=== PATIENT | male | born 1955 | race Two or more races ===

== ENCOUNTER 2020-12-22 11:16 | Emergency (ER) | payer OTHER ==
[~2020-12-22] VITALS: Ht 167.6 cm; Wt 111.1 kg
[2020-12-22 11:21] VITALS: BP 143/84
== END 2020-12-22 12:40 | disposition home or self-care (01) ==
LOC: ER 11:19
DX: S00.412A Abrasion of left ear, initial encounter (principal); K21.9 Gastro-esophageal reflux disease without esophagitis; F43.10 Post-traumatic stress disorder, unspecified; F17.210 Nicotine dependence, cigarettes, uncomplicated; Z88.0 Allergy status to penicillin; Z96.22 Myringotomy tube(s) status; X58.XXXA Exposure to other specified factors, initial encounter; Y93.89 Activity, other specified; Y92.89 Other specified places as the place of occurrence of the external cause; Y99.8 Other external cause status

== ENCOUNTER 2022-05-03 09:20 | Inpatient (IN) | payer OTHER ==
[~2022-05-03] VITALS: Ht 167.6 cm; Wt 87.9 kg
[2022-05-03] MEDS ORDERED: ENOXAPARIN SOD 100 MG/1 ML SYRINGE SC ONE (11:30)
[2022-05-03] MEDS ORDERED: HYDROcodone-ACET 10/325MG TAB PO ONE (11:30)
[2022-05-03 12:09] LABS: Basophils # (auto) 0 10 ^3/uL (0-0.2); Basophils % (auto) 0.3 % (0.0-2.0); Eosinophils # (auto) 0 10 ^3/uL (0-0.8); Eosinophils % (auto) 0.1 % (0.0-7.0); Hematocrit 38.6 % (41.0-53.0); Hemoglobin 12.9 g/dL (13.5-17.5); Lymphocytes # (auto) 1.1 10 ^3/uL (0.4-5.4); Lymphocytes % (auto) 7.6 % (10.0-50.0); Mean Corpuscular Hemoglobin 28.7 pg (28.0-32.0); Mean Corpuscular Hgb Conc. 33.5 g/dL (32.0-36.0); Mean Corpuscular Volume 85.6 fL (80.0-100.0); Monocytes # (auto) 1.4 10 ^3/uL (0-1.3); Monocytes % (auto) 10.2 % (0.0-12.0); Neutrophils # (auto) 11.5 10 ^3/uL (1.6-8.6); Neutrophils % (auto) 81.8 % (37.0-80.0); Red Blood Cells 4.51 10^6/uL (4.5-5.90); Red Cell Distribution Width 14.9 % (11.8-14.3)
[2022-05-03 12:22] LABS: Albumin 2.5 g/dL (3.4-5.0); Calcium 8.8 mg/dL (8.5-10.1); Potassium 3.5 mmol/L (3.5-5.1)
[2022-05-03 12:25] LABS: Bilirubin, Total 1.6 mg/dL (0.2-1.0); Total Protein 7.3 g/dL (6.4-8.2)
[2022-05-03 12:27] LABS: INR 1.61 (0.9-1.15); Partial Thromboplastin Time 32.1 sec (24.6-33.4)
[2022-05-03] MEDS ORDERED: IOHEXOL 350 MG/ML 100ML IJ ONE (14:15)
[2022-05-03] MEDS ORDERED: HEPARIN SODIUM (PORCINE) 5000 UNITS/ML 1ML VIAL IV ONE (17:00)
[2022-05-03] MEDS ORDERED: DOCUSATE SOD 100 MG CAP PO PRN (17:00)
[2022-05-03] MEDS ORDERED: HEPARIN DRIP/D5W 100UNITS/ML 250 ML IV SCH (17:00)
[2022-05-03] MEDS ORDERED: ONDANSETRON HCL 4 MG/2 ML VIAL IV PRN (17:00)
[2022-05-03] MEDS ORDERED: ACETAMINOPHEN 325 MG TAB PO PRN (17:00)
[2022-05-03] MEDS: MORPHINE SULFATE INJ 2 MG/ml SYRG IV PRN ×2 (17:38→22:23)
[2022-05-03] MEDS: SODIUM CHLORIDE 0.9% 1,000 ML IV SCH (17:48)
[2022-05-03 19:24] LABS: Urine Bacteria NONE SEEN /hpf (None Seen); Urine Blood Negative /uL (Negative); Urine Mucus FEW (None Seen); Urine WBC 2 /hpf (0 - 3)
[2022-05-03 19:30] LABS: Urine Specific Gravity > 1.050 (1.001-1.035)
[2022-05-03] MEDS: HYDROcodone-ACET 5/325MG TAB PO PRN (20:57)
[2022-05-03 21:26] LABS: INR 1.84 (0.9-1.15)
[2022-05-03 21:41] LABS: Partial Thromboplastin Time > 139.0 sec (24.6-33.4)
[2022-05-04 01:03] LABS: INR 1.71 (0.9-1.15)
[2022-05-04 01:05] LABS: Partial Thromboplastin Time > 139.0 sec (24.6-33.4)
[2022-05-04] MEDS ORDERED: HYDROcodone-ACET 7.5/325MG TAB PO ONE (01:15)
[2022-05-04] MEDS: HEPARIN DRIP/D5W 100UNITS/ML 250 ML IV SCH ×2 (02:50→10:37)
[2022-05-04 04:15] LABS: Basophils # (auto) 0.1 10 ^3/uL (0-0.2); Basophils % (auto) 0.9 % (0.0-2.0); Eosinophils # (auto) 0.2 10 ^3/uL (0-0.8); Eosinophils % (auto) 1.6 % (0.0-7.0); Hematocrit 33.5 % (41.0-53.0); Hemoglobin 11.1 g/dL (13.5-17.5); Lymphocytes # (auto) 1.3 10 ^3/uL (0.4-5.4); Lymphocytes % (auto) 10.9 % (10.0-50.0); Mean Corpuscular Hgb Conc. 33.3 g/dL (32.0-36.0); Mean Corpuscular Volume 84.2 fL (80.0-100.0); Monocytes # (auto) 1.2 10 ^3/uL (0-1.3); Monocytes % (auto) 10.1 % (0.0-12.0); Neutrophils % (auto) 76.5 % (37.0-80.0); Red Blood Cells 3.98 10^6/uL (4.5-5.90); Red Cell Distribution Width 14.9 % (11.8-14.3); White Blood Cell 11.7 10^3/uL (4.4-10.8)
[2022-05-04 04:43] LABS: Albumin 2.2 g/dL (3.4-5.0); Potassium 3.1 mmol/L (3.5-5.1)
[2022-05-04 04:47] LABS: BUN/Creatinine Ratio 18.5; Bilirubin, Total 2.2 mg/dL (0.2-1.0); Total Protein 6.3 g/dL (6.4-8.2)
[2022-05-04] MEDS ORDERED: LACTULOSE 20Gm/30ML SOLN PO ONE (08:15)
[2022-05-04] MEDS ORDERED: MORPHINE SULFATE 4 MG/ML SYR/VIAL ONE (08:38)
[2022-05-04] MEDS: MORPHINE SULFATE INJ 2 MG/ml SYRG IV PRN (08:42)
[2022-05-04 09:06] LABS: INR 1.62 (0.9-1.15)
[2022-05-04 09:27] LABS: Partial Thromboplastin Time 76.9 sec (24.6-33.4)
[2022-05-04] MEDS: SODIUM CHLORIDE 0.9% 1,000 ML IV SCH (10:04)
[2022-05-04] MEDS: HYDROcodone-ACET 5/325MG TAB PO PRN (14:52)
[2022-05-04] MEDS ORDERED: POTASSIUM CHL 20 Meq TABLET PO ONE (15:45)
[2022-05-04 16:25] LABS: INR 1.61 (0.9-1.15); Partial Thromboplastin Time 65.4 sec (24.6-33.4)
[2022-05-04] MEDS ORDERED: ATOR-47 PO (18:25)
[2022-05-04] MEDS ORDERED: OMEP20TA PO (18:25)
[2022-05-04] MEDS ORDERED: LACT30003 PO (18:25)
[2022-05-04] MEDS ORDERED: MONT-8 PO (18:25)
[2022-05-04] MEDS ORDERED: CHOL20007 PO (18:25)
[2022-05-04] MEDS ORDERED: AML5T PO (18:25)
[2022-05-04] MEDS ORDERED: CETI-120 PO (18:25)
[2022-05-04] MEDS ORDERED: NAP500T PO (18:25)
[2022-05-04] MEDS ORDERED: GABA300C10 PO (18:25)
[2022-05-04] MEDS ORDERED: OMEG100078 PO (18:25)
[2022-05-04] MEDS ORDERED: FLUT1SPR21 (18:25)
[2022-05-04 22:00] VITALS: BP_SYST 117; BP_SYST 144; BP_DIAS 66; BP_DIAS 72
[2022-05-04 23:07] LABS: INR 1.62 (0.9-1.15); Partial Thromboplastin Time 68.1 sec (24.6-33.4)
[2022-05-05] MEDS: SODIUM CHLORIDE 0.9% 1,000 ML IV SCH ×2 (02:20→18:29)
[2022-05-05 04:34] LABS: INR 1.61 (0.9-1.15)
[2022-05-05 05:16] VITALS: BP 130/70
[2022-05-05 09:00] VITALS: BP 115/69
[2022-05-05 09:01] LABS: Basophils # (auto) 0.1 10 ^3/uL (0-0.2); Basophils % (auto) 0.5 % (0.0-2.0); Eosinophils # (auto) 0.1 10 ^3/uL (0-0.8); Eosinophils % (auto) 0.8 % (0.0-7.0); Hematocrit 35.9 % (41.0-53.0); Hemoglobin 11.9 g/dL (13.5-17.5); Lymphocytes # (auto) 0.9 10 ^3/uL (0.4-5.4); Lymphocytes % (auto) 7.2 % (10.0-50.0); Mean Corpuscular Hemoglobin 28.6 pg (28.0-32.0); Mean Corpuscular Hgb Conc. 33.2 g/dL (32.0-36.0); Mean Corpuscular Volume 86.1 fL (80.0-100.0); Monocytes # (auto) 1.3 10 ^3/uL (0-1.3); Monocytes % (auto) 10.5 % (0.0-12.0); Neutrophils # (auto) 9.7 10 ^3/uL (1.6-8.6); Nucleated Red Blood Cells % 0.1 %; Red Blood Cells 4.17 10^6/uL (4.5-5.90); Red Cell Distribution Width 15.2 % (11.8-14.3)
[2022-05-05] MEDS: levoFLOXacin 500MG 100 ML IV SCH (09:28)
[2022-05-05] MEDS ORDERED: LORazepam 2MG/ML-1ML VIAL IV ONE (10:45)
[2022-05-05] MEDS: HEPARIN DRIP/D5W 100UNITS/ML 250 ML IV SCH (12:32)
[2022-05-05 13:00] VITALS: BP 117/69
[2022-05-05] MEDS ORDERED: GADOTERATE MEG 10 MMOL/20ml INJ (0.5MMOL/ml) IV ONE (14:22)
[2022-05-05] MEDS: MORPHINE SULFATE INJ 2 MG/ml SYRG IV PRN ×2 (15:34→22:08)
[2022-05-05 17:00] VITALS: BP 123/72
[2022-05-05 22:00] VITALS: BP 128/71
[2022-05-06] VITALS (7 sets, daily range): BP systolic 119–134; BP diastolic 66–79
[2022-05-06] MEDS: HYDROcodone-ACET 5/325MG TAB PO PRN (02:21)
[2022-05-06 06:00] LABS: Basophils # (auto) 0 10 ^3/uL (0-0.2); Basophils % (auto) 0.3 % (0.0-2.0); Eosinophils # (auto) 0.1 10 ^3/uL (0-0.8); Eosinophils % (auto) 0.8 % (0.0-7.0); Hematocrit 34.2 % (41.0-53.0); Hemoglobin 11.3 g/dL (13.5-17.5); Lymphocytes # (auto) 0.8 10 ^3/uL (0.4-5.4); Lymphocytes % (auto) 8.1 % (10.0-50.0); Mean Corpuscular Hemoglobin 29.1 pg (28.0-32.0); Mean Corpuscular Hgb Conc. 33.2 g/dL (32.0-36.0); Mean Corpuscular Volume 87.9 fL (80.0-100.0); Monocytes # (auto) 1.1 10 ^3/uL (0-1.3); Monocytes % (auto) 10.9 % (0.0-12.0); Neutrophils # (auto) 8.3 10 ^3/uL (1.6-8.6); Neutrophils % (auto) 79.9 % (37.0-80.0); Red Blood Cells 3.89 10^6/uL (4.5-5.90); Red Cell Distribution Width 15.1 % (11.8-14.3); White Blood Cell 10.4 10^3/uL (4.4-10.8)
[2022-05-06 06:10] LABS: INR 1.49 (0.9-1.15); Partial Thromboplastin Time 57.2 sec (24.6-33.4)
[2022-05-06 06:13] LABS: Potassium 3.6 mmol/L (3.5-5.1)
[2022-05-06 06:14] LABS: Albumin 2.1 g/dL (3.4-5.0); BUN/Creatinine Ratio 15.6; Calcium 8.5 mg/dL (8.5-10.1)
[2022-05-06 06:16] LABS: Bilirubin, Total 1.9 mg/dL (0.2-1.0); Total Protein 6.3 g/dL (6.4-8.2)
[2022-05-06] MEDS: MORPHINE SULFATE INJ 2 MG/ml SYRG IV PRN ×2 (08:29→23:01)
[2022-05-06] MEDS: HEPARIN DRIP/D5W 100UNITS/ML 250 ML IV SCH (08:32)
[2022-05-06] MEDS: levoFLOXacin 500MG 100 ML IV SCH (09:59)
[2022-05-06] MEDS: SODIUM CHLORIDE 0.9% 1,000 ML IV SCH (11:40)
[2022-05-07] VITALS (9 sets, daily range): BP systolic 105–140; BP diastolic 71–86
[2022-05-07] MEDS: MORPHINE SULFATE INJ 2 MG/ml SYRG IV PRN ×4 (03:27→21:01)
[2022-05-07] MEDS: SODIUM CHLORIDE 0.9% 1,000 ML IV SCH ×2 (05:00→22:00)
[2022-05-07 06:44] LABS: INR 1.41 (0.9-1.15)
[2022-05-07] MEDS: levoFLOXacin 500MG 100 ML IV SCH (08:07)
[2022-05-07] MEDS: HEPARIN DRIP/D5W 100UNITS/ML 250 ML IV SCH (08:15)
[2022-05-07] MEDS ORDERED: HEPARIN DRIP/D5W 100UNITS/ML 250 ML IV SCH ×2 (08:30→21:30)
[2022-05-07 09:09] LABS: Hepatitis B Surface Antibody Negative (Negative)
[2022-05-07 09:43] LABS: Hepatitis A Total Antibody Positive (Negative)
[2022-05-07] MEDS ORDERED: LACTULOSE 20Gm/30ML SOLN PO PRN (10:15)
[2022-05-07 11:26] LABS: Hepatitis C Antibody Reactive (Negative)
[2022-05-07] MEDS ORDERED: IODIXANOL 320MG/ML 100ML BTL IV ONE (14:19)
[2022-05-07] MEDS ORDERED: LIDOCAINE 2%HCL (LOCAL ANESTH.) INJ 20ML MDV ONE (14:19)
[2022-05-07 14:24] LABS: INR 1.52 (0.9-1.15); Partial Thromboplastin Time 56.6 sec (24.6-33.4)
[2022-05-07] MEDS ORDERED: fentaNYL CITRATE 100 MCG/2 ML VL ONE ×2 (14:26→15:26)
[2022-05-07] MEDS ORDERED: MIDAZOLAM HCL 2MG/2ML 2ml VIAL (1mg/ml) ONE ×2 (14:26→15:26)
[2022-05-07] MEDS ORDERED: HEPARIN SODIUM (PORCINE) 5000 UNITS/ML 1ML VIAL ONE ×2 (14:27→15:11)
[2022-05-07] MEDS ORDERED: HYDROmorphone HCL 2 MG/ML VL/or syr ONE (14:55)
[2022-05-07 21:02] LABS: INR 1.53 (0.9-1.15)
[2022-05-07 21:18] LABS: Partial Thromboplastin Time 83.2 sec (24.6-33.4)
[2022-05-08] MEDS: MORPHINE SULFATE INJ 2 MG/ml SYRG IV PRN ×3 (01:00→11:38)
[2022-05-08 04:20] LABS: INR 1.49 (0.9-1.15); Partial Thromboplastin Time 53.5 sec (24.6-33.4)
[2022-05-08 05:00] VITALS: BP 136/71
[2022-05-08 08:40] VITALS: BP 124/70
[2022-05-08] MEDS: levoFLOXacin 500MG 100 ML IV SCH (08:43)
[2022-05-08 09:44] LABS: INR 1.57 (0.9-1.15); Partial Thromboplastin Time 51.5 sec (24.6-33.4)
[2022-05-08] MEDS ORDERED: LACTULOSE 20Gm/30ML SOLN PO PRN (12:00)
[2022-05-08 13:00] VITALS: BP_SYST 121; BP_SYST 136; BP_DIAS 62; BP_DIAS 74
[2022-05-08] MEDS: SODIUM CHLORIDE 0.9% 1,000 ML IV SCH (13:40)
[2022-05-08] MEDS: HYDROmorphone HCL 2 MG/ML VL/or syr IV PRN ×2 (15:26→20:47)
[2022-05-08 16:53] LABS: INR 1.59 (0.9-1.15); Partial Thromboplastin Time 45.6 sec (24.6-33.4)
[2022-05-08 16:56] VITALS: BP 128/80
[2022-05-08] MEDS ORDERED: HEPARIN DRIP/D5W 100UNITS/ML 250 ML IV SCH (17:15)
[2022-05-08 22:00] VITALS: BP 133/84
[2022-05-08 23:42] LABS: INR 1.57 (0.9-1.15); Partial Thromboplastin Time 53.1 sec (24.6-33.4)
[2022-05-09] MEDS: HYDROmorphone HCL 2 MG/ML VL/or syr IV PRN ×4 (02:01→21:23)
[2022-05-09] MEDS: SODIUM CHLORIDE 0.9% 1,000 ML IV SCH ×2 (02:22→21:31)
[2022-05-09 05:00] VITALS: BP 124/76
[2022-05-09 05:34] LABS: INR 1.51 (0.9-1.15); Partial Thromboplastin Time 49.5 sec (24.6-33.4)
[2022-05-09 08:10] VITALS: BP 127/66
[2022-05-09 08:39] VITALS: BP 127/66
[2022-05-09] MEDS: levoFLOXacin 500MG 100 ML IV SCH (10:04)
[2022-05-09] MEDS: HYDROcodone-ACET 5/325MG TAB PO PRN (10:30)
[2022-05-09 11:15] LABS: INR 1.46 (0.9-1.15); Partial Thromboplastin Time 49.3 sec (24.6-33.4)
[2022-05-09] MEDS: HEPARIN DRIP/D5W 100UNITS/ML 250 ML IV SCH (11:34)
[2022-05-09 13:03] VITALS: BP 126/67
[2022-05-09 17:00] VITALS: BP 122/78
[2022-05-09 18:56] LABS: INR 1.51 (0.9-1.15); Partial Thromboplastin Time 56.3 sec (24.6-33.4)
[2022-05-09 22:15] VITALS: BP 128/76
[2022-05-10] MEDS: HYDROmorphone HCL 2 MG/ML VL/or syr IV PRN ×5 (01:46→20:51)
[2022-05-10 02:08] LABS: INR 1.58 (0.9-1.15); Partial Thromboplastin Time 52.2 sec (24.6-33.4)
[2022-05-10 05:20] VITALS: BP 119/68
[2022-05-10] MEDS: HEPARIN DRIP/D5W 100UNITS/ML 250 ML IV SCH ×2 (05:22→10:15)
[2022-05-10 08:56] VITALS: BP 127/74
[2022-05-10 10:16] LABS: INR 1.44 (0.9-1.15); Partial Thromboplastin Time 55.2 sec (24.6-33.4)
[2022-05-10] MEDS: levoFLOXacin 500MG 100 ML IV SCH (11:39)
[2022-05-10] MEDS ORDERED: LACTULOSE 20Gm/30ML SOLN PO PRN (12:00)
[2022-05-10 12:20] LABS: Potassium 3.4 mmol/L (3.5-5.1)
[2022-05-10 12:25] LABS: Basophils # (auto) 0.1 10 ^3/uL (0-0.2); Basophils % (auto) 0.5 % (0.0-2.0); Eosinophils # (auto) 0 10 ^3/uL (0-0.8); Eosinophils % (auto) 0.3 % (0.0-7.0); Hematocrit 32.3 % (41.0-53.0); Hemoglobin 10.6 g/dL (13.5-17.5); Lymphocytes # (auto) 0.6 10 ^3/uL (0.4-5.4); Lymphocytes % (auto) 5.2 % (10.0-50.0); Mean Corpuscular Hgb Conc. 32.9 g/dL (32.0-36.0); Mean Corpuscular Volume 88.1 fL (80.0-100.0); Monocytes # (auto) 1.2 10 ^3/uL (0-1.3); Monocytes % (auto) 10.3 % (0.0-12.0); Neutrophils # (auto) 10.2 10 ^3/uL (1.6-8.6); Neutrophils % (auto) 83.7 % (37.0-80.0); Nucleated Red Blood Cells % 0.1 %; Red Blood Cells 3.67 10^6/uL (4.5-5.90); Red Cell Distribution Width 15.4 % (11.8-14.3); White Blood Cell 12.1 10^3/uL (4.4-10.8)
[2022-05-10] MEDS: DOCUSATE SOD 100 MG CAP PO SCH ×2 (13:01→22:00)
[2022-05-10 13:16] VITALS: BP 116/73
[2022-05-10] MEDS: SODIUM CHLORIDE 0.9% 1,000 ML IV SCH (14:08)
[2022-05-10 15:53] LABS: INR 1.5 (0.9-1.15); Partial Thromboplastin Time 55.5 sec (24.6-33.4)
[2022-05-10 17:02] VITALS: BP 131/71
[2022-05-10 22:00] VITALS: BP 137/77
[2022-05-11] MEDS: HYDROmorphone HCL 2 MG/ML VL/or syr IV PRN ×8 (00:44→22:33)
[2022-05-11] MEDS: HEPARIN DRIP/D5W 100UNITS/ML 250 ML IV SCH (04:34)
[2022-05-11 05:11] VITALS: BP 112/58
[2022-05-11 06:31] LABS: INR 1.44 (0.9-1.15); Partial Thromboplastin Time 57.8 sec (24.6-33.4)
[2022-05-11] MEDS: SODIUM CHLORIDE 0.9% 1,000 ML IV SCH (06:52)
[2022-05-11 08:20] VITALS: BP 119/74
[2022-05-11] MEDS: levoFLOXacin 500MG 100 ML IV SCH (09:41)
[2022-05-11] MEDS: DOCUSATE SOD 100 MG CAP PO SCH ×2 (10:00→23:21)
[2022-05-11] MEDS ORDERED: APIX5TAB PO ×2 (10:10→16:15)
[2022-05-11] MEDS ORDERED: PERCOT PO ×4 (10:11→16:17)
[2022-05-11] MEDS ORDERED: LIDOCAINE 2% (LOCAL ANESTH.) PF 5ml SDV ONE (11:58)
[2022-05-11] MEDS ORDERED: MIDAZOLAM HCL 2MG/2ML 2ml VIAL (1mg/ml) ONE (11:58)
[2022-05-11] MEDS ORDERED: fentaNYL CITRATE 100 MCG/2 ML VL ONE (11:59)
[2022-05-11 12:30] VITALS: BP 112/69
[2022-05-11] MEDS: APIXABAN 5 MG TAB PO SCH ×2 (14:46→23:21)
[2022-05-11 16:20] VITALS: BP 127/77
[2022-05-11 22:00] VITALS: BP 114/72
[2022-05-12] MEDS: HYDROmorphone HCL 2 MG/ML VL/or syr IV PRN ×6 (01:52→19:53)
[2022-05-12] MEDS: SODIUM CHLORIDE 0.9% 1,000 ML IV SCH (01:57)
[2022-05-12 05:00] VITALS: BP 131/74
[2022-05-12 09:00] VITALS: BP 144/72
[2022-05-12] MEDS: DOCUSATE SOD 100 MG CAP PO SCH ×2 (09:50→21:17)
[2022-05-12] MEDS: APIXABAN 5 MG TAB PO SCH ×2 (09:50→21:17)
[2022-05-12] MEDS: levoFLOXacin 500MG 100 ML IV SCH (10:00)
[2022-05-12 13:00] VITALS: BP 137/69
[2022-05-12] MEDS ORDERED: SODIUM CHLORIDE 0.9% 1,000 ML IV SCH (13:30)
[2022-05-12] MEDS ORDERED: levoFLOXacin 500MG 100 ML IV SCH (13:30)
[2022-05-12 22:00] VITALS: BP 126/72
[2022-05-13] MEDS: HYDROmorphone HCL 2 MG/ML VL/or syr IV PRN ×7 (02:05→21:52)
[2022-05-13 05:00] VITALS: BP 122/63
[2022-05-13] MEDS: DOCUSATE SOD 100 MG CAP PO SCH ×2 (08:37→21:51)
[2022-05-13] MEDS: APIXABAN 5 MG TAB PO SCH ×2 (08:37→21:51)
[2022-05-13 09:00] VITALS: BP 118/74
[2022-05-13 09:29] LABS: Basophils # (auto) 0.1 10 ^3/uL (0-0.2); Basophils % (auto) 0.3 % (0.0-2.0); Eosinophils # (auto) 0 10 ^3/uL (0-0.8); Hematocrit 32.9 % (41.0-53.0); Hemoglobin 10.7 g/dL (13.5-17.5); Lymphocytes # (auto) 0.5 10 ^3/uL (0.4-5.4); Lymphocytes % (auto) 3.2 % (10.0-50.0); Mean Corpuscular Hemoglobin 27.9 pg (28.0-32.0); Mean Corpuscular Hgb Conc. 32.4 g/dL (32.0-36.0); Monocytes # (auto) 1.7 10 ^3/uL (0-1.3); Monocytes % (auto) 10.1 % (0.0-12.0); Neutrophils # (auto) 14.9 10 ^3/uL (1.6-8.6); Neutrophils % (auto) 86.4 % (37.0-80.0); Red Blood Cells 3.83 10^6/uL (4.5-5.90); White Blood Cell 17.3 10^3/uL (4.4-10.8)
[2022-05-13] MEDS ORDERED: DOXYCYCLINE 100 MG TAB/CAP PO SCH (10:00)
[2022-05-13 10:07] LABS: Anion Gap 9 (5-15); Carbon Dioxide 29 mmol/L (21-32); Chloride 96 mmol/L (98-107); Potassium 3.8 mmol/L (3.5-5.1); Sodium 134 mmol/L (136-145)
[2022-05-13 10:08] LABS: Alanine Aminotransferase 109 U/L (16-61); Albumin 1.7 g/dL (3.4-5.0); Alkaline Phosphatase 612 U/L (45-117); Aspartate Aminotransferase 99 U/L (15-37); BUN/Creatinine Ratio 28.9; Bilirubin, Total 9.3 mg/dL (0.2-1.0); Blood Urea Nitrogen 13 mg/dL (7-18); Calcium 9.7 mg/dL (8.5-10.1); GFR African American 243 mL/min; GFR Non-African American 201 mL/min; Glucose 125 mg/dL (74-106)
[2022-05-13] MEDS ORDERED: DOXY-340 PO (10:25)
[2022-05-13 12:00] VITALS: BP 123/77
[2022-05-13] MEDS: metroNIDAZOLE 500MG/100ML 100 ML IV SCH ×2 (14:23→21:50)
[2022-05-13] MEDS ORDERED: IOHEXOL 300 MG/ML 100ML BOTTLE IJ ONE (15:51)
[2022-05-13 17:00] VITALS: BP_SYST 122; BP_SYST 123; BP_DIAS 63; BP_DIAS 67
[2022-05-13 22:00] VITALS: BP 140/80
[2022-05-14] MEDS: HYDROmorphone HCL 2 MG/ML VL/or syr IV PRN ×5 (01:21→18:41)
[2022-05-14 05:00] VITALS: BP 119/66
[2022-05-14] MEDS: metroNIDAZOLE 500MG/100ML 100 ML IV SCH (06:00)
[2022-05-14 09:00] VITALS: BP 126/68
[2022-05-14] MEDS: DOCUSATE SOD 100 MG CAP PO SCH ×2 (10:00→22:03)
[2022-05-14] MEDS ORDERED: levoFLOXacin 500MG 100 ML IV SCH (10:00)
[2022-05-14] MEDS: APIXABAN 5 MG TAB PO SCH ×2 (10:01→22:03)
[2022-05-14 10:53] LABS: Hematocrit 31.3 % (41.0-53.0); Hemoglobin 10.4 g/dL (13.5-17.5); Mean Corpuscular Hemoglobin 27.9 pg (28.0-32.0); Mean Corpuscular Hgb Conc. 33.2 g/dL (32.0-36.0); Red Blood Cells 3.73 10^6/uL (4.5-5.90); Red Cell Distribution Width 16.2 % (11.8-14.3); White Blood Cell 18.4 10^3/uL (4.4-10.8)
[2022-05-14 11:17] LABS: Basophils % (manual) 0 (0.0-2.0); Blast Cells 0; Eosinophils % (manual) 0 (0-7); Promyelocytes % 0; Reactive Lymphocytes 0
[2022-05-14 11:29] LABS: Albumin 1.6 g/dL (3.4-5.0); Calcium 9.9 mg/dL (8.5-10.1)
[2022-05-14 11:32] LABS: Bilirubin, Total 8.8 mg/dL (0.2-1.0)
[2022-05-14] MEDS: HYDROcodone-ACET 5/325MG TAB PO PRN ×3 (11:53→22:04)
[2022-05-14 12:16] LABS: Band Neutrophils % (manual) 2; Lymphocytes % (manual) 6 (10.0-50.0); Metamyelocytes % 1; Monocytes % (manual) 8 (0-12); Myelocytes % 2
[2022-05-14 13:00] VITALS: BP 121/77
[2022-05-14] MEDS: MEROPENEM 1GM IVPB 100 ML IV SCH ×2 (15:02→22:05)
[2022-05-14 17:00] VITALS: BP 110/69
[2022-05-14 22:06] VITALS: BP 116/72
[2022-05-15 03:05] VITALS: BP 117/72
[2022-05-15] MEDS: HYDROmorphone HCL 2 MG/ML VL/or syr IV PRN ×4 (03:22→21:20)
[2022-05-15 05:02] LABS: Hematocrit 29.3 % (41.0-53.0); Hemoglobin 9.7 g/dL (13.5-17.5); Mean Corpuscular Hemoglobin 28.2 pg (28.0-32.0); Mean Corpuscular Hgb Conc. 33.3 g/dL (32.0-36.0); Mean Corpuscular Volume 84.9 fL (80.0-100.0); Red Blood Cells 3.45 10^6/uL (4.5-5.90); Red Cell Distribution Width 16.2 % (11.8-14.3); White Blood Cell 17.3 10^3/uL (4.4-10.8)
[2022-05-15 05:08] VITALS: BP 114/60
[2022-05-15 05:10] LABS: Band Neutrophils % (manual) 0; Basophils % (manual) 0 (0.0-2.0); Blast Cells 0; Promyelocytes % 0; Reactive Lymphocytes 0
[2022-05-15 05:23] LABS: Albumin 1.5 g/dL (3.4-5.0); Calcium 10.1 mg/dL (8.5-10.1)
[2022-05-15 05:27] LABS: BUN/Creatinine Ratio 31.9; Bilirubin, Total 8.3 mg/dL (0.2-1.0); Total Protein 5.5 g/dL (6.4-8.2)
[2022-05-15] MEDS: MEROPENEM 1GM IVPB 100 ML IV SCH ×3 (06:32→22:19)
[2022-05-15] MEDS: SODIUM CHLORIDE 0.9% 1,000 ML IV SCH ×2 (08:41→20:20)
[2022-05-15 09:00] VITALS: BP_SYST 106; BP_SYST 155; BP_DIAS 65; BP_DIAS 71
[2022-05-15] MEDS: APIXABAN 5 MG TAB PO SCH ×2 (10:22→22:18)
[2022-05-15] MEDS: DOCUSATE SOD 100 MG CAP PO SCH ×2 (10:22→22:18)
[2022-05-15] MEDS: HYDROcodone-ACET 5/325MG TAB PO PRN (12:20)
[2022-05-15 13:00] VITALS: BP 120/66
[2022-05-15] MEDS: Glucerna Carbsteady SHAKE Vanilla 8oz PO SCH ×2 (13:37→18:40)
[2022-05-15 13:56] LABS: Eosinophils % (manual) 1 (0-7); Lymphocytes % (manual) 7 (10.0-50.0); Metamyelocytes % 1; Monocytes % (manual) 5 (0-12); Myelocytes % 3
[2022-05-15 17:00] VITALS: BP 108/63
[2022-05-15 22:10] VITALS: BP 135/71
[2022-05-16] MEDS: HYDROmorphone HCL 2 MG/ML VL/or syr IV PRN ×5 (00:48→20:52)
[2022-05-16 05:51] VITALS: BP 132/82
[2022-05-16] MEDS: MEROPENEM 1GM IVPB 100 ML IV SCH ×3 (06:00→21:24)
[2022-05-16] MEDS: Glucerna Carbsteady SHAKE Vanilla 8oz PO SCH ×3 (08:05→18:02)
[2022-05-16 09:00] VITALS: BP 125/71
[2022-05-16] MEDS: SODIUM CHLORIDE 0.9% 1,000 ML IV SCH ×2 (09:40→23:00)
[2022-05-16] MEDS: APIXABAN 5 MG TAB PO SCH ×2 (10:03→21:24)
[2022-05-16] MEDS: DOCUSATE SOD 100 MG CAP PO SCH ×2 (10:03→21:24)
[2022-05-16 13:00] VITALS: BP 115/73
[2022-05-16 17:00] VITALS: BP 124/72
[2022-05-16 22:18] VITALS: BP 128/75
[2022-05-17] MEDS: HYDROcodone-ACET 5/325MG TAB PO PRN ×2 (00:45→05:17)
[2022-05-17] MEDS: HYDROmorphone HCL 2 MG/ML VL/or syr IV PRN ×4 (02:55→20:04)
[2022-05-17 05:00] VITALS: BP 123/70
[2022-05-17] MEDS: MEROPENEM 1GM IVPB 100 ML IV SCH ×3 (05:20→21:11)
[2022-05-17 06:16] LABS: Hematocrit 28.3 % (41.0-53.0); Hemoglobin 9.5 g/dL (13.5-17.5); Mean Corpuscular Hemoglobin 28.6 pg (28.0-32.0); Mean Corpuscular Hgb Conc. 33.7 g/dL (32.0-36.0); Mean Corpuscular Volume 84.8 fL (80.0-100.0); Red Blood Cells 3.34 10^6/uL (4.5-5.90); Red Cell Distribution Width 16.6 % (11.8-14.3); White Blood Cell 19.8 10^3/uL (4.4-10.8)
[2022-05-17 06:28] LABS: Albumin 1.4 g/dL (3.4-5.0); Calcium 9.8 mg/dL (8.5-10.1)
[2022-05-17 06:34] LABS: BUN/Creatinine Ratio 32.5; Bilirubin, Total 8.2 mg/dL (0.2-1.0); Total Protein 5.6 g/dL (6.4-8.2)
[2022-05-17 06:35] LABS: Basophils % (manual) 0 (0.0-2.0); Blast Cells 0; Eosinophils % (manual) 0 (0-7); Metamyelocytes % 0; Myelocytes % 0; Promyelocytes % 0; Reactive Lymphocytes 0
[2022-05-17 06:51] LABS: Band Neutrophils % (manual) 1; Lymphocytes % (manual) 10 (10.0-50.0); Monocytes % (manual) 9 (0-12)
[2022-05-17] MEDS: Glucerna Carbsteady SHAKE Vanilla 8oz PO SCH ×3 (08:00→17:47)
[2022-05-17 09:00] VITALS: BP 104/66
[2022-05-17] MEDS: DOCUSATE SOD 100 MG CAP PO SCH ×2 (10:14→21:11)
[2022-05-17] MEDS: APIXABAN 5 MG TAB PO SCH ×2 (10:14→21:12)
[2022-05-17 13:00] VITALS: BP 117/73
[2022-05-17] MEDS: SODIUM CHLORIDE 0.9% 1,000 ML IV SCH ×2 (14:37→21:11)
[2022-05-17 17:00] VITALS: BP 120/72
[2022-05-18] MEDS: HYDROmorphone HCL 2 MG/ML VL/or syr IV PRN ×6 (01:18→23:34)
[2022-05-18 05:00] VITALS: BP 108/62
[2022-05-18] MEDS: MEROPENEM 1GM IVPB 100 ML IV SCH ×3 (05:47→20:59)
[2022-05-18] MEDS: Glucerna Carbsteady SHAKE Vanilla 8oz PO SCH ×3 (08:24→18:00)
[2022-05-18 09:00] VITALS: BP 118/69
[2022-05-18] MEDS: DOCUSATE SOD 100 MG CAP PO SCH ×2 (09:46→20:57)
[2022-05-18] MEDS: APIXABAN 5 MG TAB PO SCH ×2 (09:46→20:57)
[2022-05-18] MEDS ORDERED: PPN PER PHARMACY 0 ML IV SCH (10:15)
[2022-05-18 11:15] LABS: Albumin 1.5 g/dL (3.4-5.0); Calcium 10.6 mg/dL (8.5-10.1); Magnesium 2.4 mg/dL (1.6-2.6); Potassium 4.1 mmol/L (3.5-5.1)
[2022-05-18 11:21] LABS: BUN/Creatinine Ratio 29.5; Bilirubin, Total 9.3 mg/dL (0.2-1.0); Phosphorus 2.6 mg/dL (2.5-4.90); Total Protein 5.7 g/dL (6.4-8.2)
[2022-05-18 13:00] VITALS: BP 111/65
[2022-05-18] MEDS: SODIUM CHLORIDE 0.9% 1,000 ML IV SCH (15:32)
[2022-05-18 17:00] VITALS: BP 114/63
[2022-05-18] MEDS ORDERED: PPN PER PHARMACY IV NR ×6 (20:00)
[2022-05-18 22:00] VITALS: BP 115/67
[2022-05-19] MEDS ORDERED: DEXTROSE (50%) 50ML SYRG IV SCH
[2022-05-19] MEDS: InsuLIN REG 1unit/0.01ml Soln (100units/ml) SC SCH ×5 (00:08→23:52)
[2022-05-19] MEDS: ACCU-CHEK COMFORT CURVE STRIP VI SCH ×5 (00:09→23:53)
[2022-05-19] MEDS: HYDROmorphone HCL 2 MG/ML VL/or syr IV PRN ×5 (03:52→23:53)
[2022-05-19] MEDS: SODIUM CHLORIDE 0.9% 1,000 ML IV SCH ×3 (04:02→15:39)
[2022-05-19 05:00] VITALS: BP 105/61
[2022-05-19] MEDS: MEROPENEM 1GM IVPB 100 ML IV SCH ×3 (05:12→22:19)
[2022-05-19 06:08] LABS: Albumin 1.4 g/dL (3.4-5.0); Calcium 10.9 mg/dL (8.5-10.1); Magnesium 2.1 mg/dL (1.6-2.6); Potassium 3.7 mmol/L (3.5-5.1)
[2022-05-19 06:11] LABS: Bilirubin, Total 8.8 mg/dL (0.2-1.0); Hematocrit 25.4 % (41.0-53.0); Hemoglobin 8.9 g/dL (13.5-17.5); Mean Corpuscular Hemoglobin 30.9 pg (28.0-32.0); Mean Corpuscular Volume 88.3 fL (80.0-100.0); Phosphorus 1.9 mg/dL (2.5-4.90); Red Blood Cells 2.88 10^6/uL (4.5-5.90); Red Cell Distribution Width 17.2 % (11.8-14.3); Total Protein 5.3 g/dL (6.4-8.2); White Blood Cell 19.3 10^3/uL (4.4-10.8)
[2022-05-19 07:02] LABS: Basophils % (manual) 0 (0.0-2.0); Blast Cells 0; Eosinophils % (manual) 0 (0-7); Metamyelocytes % 0; Myelocytes % 0; Promyelocytes % 0; Reactive Lymphocytes 0
[2022-05-19 07:20] LABS: Band Neutrophils % (manual) 1; Lymphocytes % (manual) 8 (10.0-50.0); Monocytes % (manual) 10 (0-12)
[2022-05-19 08:00] VITALS: BP 132/63
[2022-05-19] MEDS: Glucerna Carbsteady SHAKE Vanilla 8oz PO SCH ×3 (08:00→18:24)
[2022-05-19] MEDS: APIXABAN 5 MG TAB PO SCH ×2 (09:14→22:21)
[2022-05-19] MEDS: DOCUSATE SOD 100 MG CAP PO SCH ×2 (09:15→22:00)
[2022-05-19 12:00] VITALS: BP 120/65
[2022-05-19] MEDS ORDERED: POTASSIUM PHOSPHATE 44 MEQ in D5W 5% 250 ML IV ONE (14:00)
[2022-05-19 16:00] VITALS: BP 131/68
[2022-05-19] MEDS ORDERED: METOPROLOL TARTRATE 25 MG TAB PO ONE (18:00)
[2022-05-19] MEDS ORDERED: PPN PER PHARMACY IV NR ×15 (20:00)
[2022-05-19 22:00] VITALS: BP 138/64
[2022-05-19] MEDS: METOPROLOL TARTRATE 25 MG TAB PO SCH (22:00)
[2022-05-20] MEDS: SODIUM CHLORIDE 0.9% 1,000 ML IV SCH ×3 (02:00→18:32)
[2022-05-20] MEDS: HYDROmorphone HCL 2 MG/ML VL/or syr IV PRN ×4 (02:57→21:57)
[2022-05-20 05:00] VITALS: BP 115/62
[2022-05-20] MEDS: InsuLIN REG 1unit/0.01ml Soln (100units/ml) SC SCH ×4 (05:02→23:48)
[2022-05-20 05:12] LABS: Hematocrit 24.9 % (41.0-53.0); Hemoglobin 8.3 g/dL (13.5-17.5); Mean Corpuscular Hemoglobin 28.1 pg (28.0-32.0); Mean Corpuscular Hgb Conc. 33.3 g/dL (32.0-36.0); Mean Corpuscular Volume 84.4 fL (80.0-100.0); Red Blood Cells 2.95 10^6/uL (4.5-5.90); Red Cell Distribution Width 18.1 % (11.8-14.3); White Blood Cell 20.4 10^3/uL (4.4-10.8)
[2022-05-20 05:17] LABS: Basophils % (manual) 0 (0.0-2.0); Blast Cells 0; Eosinophils % (manual) 0 (0-7); Promyelocytes % 0; Reactive Lymphocytes 0
[2022-05-20] MEDS: MEROPENEM 1GM IVPB 100 ML IV SCH ×3 (05:25→21:56)
[2022-05-20 05:30] LABS: Albumin 1.2 g/dL (3.4-5.0); Calcium 9.8 mg/dL (8.5-10.1); Magnesium 1.9 mg/dL (1.6-2.6); Potassium 3.8 mmol/L (3.5-5.1)
[2022-05-20 05:34] LABS: BUN/Creatinine Ratio 45.9; Phosphorus 2.5 mg/dL (2.5-4.90)
[2022-05-20] MEDS: ACCU-CHEK COMFORT CURVE STRIP VI SCH ×4 (06:34→23:48)
[2022-05-20 08:00] VITALS: BP 128/67
[2022-05-20] MEDS: Glucerna Carbsteady SHAKE Vanilla 8oz PO SCH ×3 (08:47→18:32)
[2022-05-20] MEDS: DOCUSATE SOD 100 MG CAP PO SCH ×2 (09:01→21:55)
[2022-05-20] MEDS: METOPROLOL TARTRATE 25 MG TAB PO SCH ×2 (09:02→21:56)
[2022-05-20] MEDS: APIXABAN 5 MG TAB PO SCH (09:02)
[2022-05-20] MEDS ORDERED: SODIUM PHOSP 20MEQ(15MMOL) IN NS 100 ML IV ONE (10:30)
[2022-05-20 12:00] VITALS: BP 103/53
[2022-05-20 13:14] LABS: INR 1.51 (0.9-1.15); Partial Thromboplastin Time 32.7 sec (24.6-33.4)
[2022-05-20 16:00] VITALS: BP 108/54
[2022-05-20] MEDS ORDERED: PPN PER PHARMACY IV NR ×8 (20:00)
[2022-05-21] MEDS: SODIUM CHLORIDE 0.9% 1,000 ML IV SCH ×4 (01:41→23:18)
[2022-05-21] MEDS: HYDROmorphone HCL 2 MG/ML VL/or syr IV PRN ×2 (03:55→09:48)
[2022-05-21 05:00] VITALS: BP 126/56
[2022-05-21 05:20] LABS: Hematocrit 23.2 % (41.0-53.0); Hemoglobin 7.9 g/dL (13.5-17.5); Mean Corpuscular Hemoglobin 28.9 pg (28.0-32.0); Mean Corpuscular Volume 85.1 fL (80.0-100.0); Red Blood Cells 2.72 10^6/uL (4.5-5.90); Red Cell Distribution Width 18.1 % (11.8-14.3); White Blood Cell 20.3 10^3/uL (4.4-10.8)
[2022-05-21 05:36] LABS: Albumin 1.2 g/dL (3.4-5.0); Calcium 10.1 mg/dL (8.5-10.1); Magnesium 1.9 mg/dL (1.6-2.6); Potassium 3.6 mmol/L (3.5-5.1)
[2022-05-21 05:40] LABS: BUN/Creatinine Ratio 41.5; Bilirubin, Total 11.2 mg/dL (0.2-1.0); Phosphorus 2.4 mg/dL (2.5-4.90); Total Protein 4.8 g/dL (6.4-8.2)
[2022-05-21] MEDS: ACCU-CHEK COMFORT CURVE STRIP VI SCH ×4 (05:42→23:37)
[2022-05-21] MEDS: MEROPENEM 1GM IVPB 100 ML IV SCH ×3 (05:42→22:00)
[2022-05-21] MEDS: InsuLIN REG 1unit/0.01ml Soln (100units/ml) SC SCH ×4 (05:43→23:38)
[2022-05-21 05:47] LABS: Basophils % (manual) 0 (0.0-2.0); Blast Cells 0; Eosinophils % (manual) 0 (0-7); Promyelocytes % 0; Reactive Lymphocytes 0
[2022-05-21 07:51] LABS: Band Neutrophils % (manual) 3; Lymphocytes % (manual) 1 (10.0-50.0); Metamyelocytes % 2; Monocytes % (manual) 4 (0-12); Myelocytes % 1
[2022-05-21] MEDS: Glucerna Carbsteady SHAKE Vanilla 8oz PO SCH ×3 (08:27→18:17)
[2022-05-21] MEDS ORDERED: SODIUM PHOSP 20MEQ(15MMOL) IN NS 100 ML IV ONE (09:00)
[2022-05-21 09:30] VITALS: BP 106/61
[2022-05-21] MEDS: DOCUSATE SOD 100 MG CAP PO SCH ×2 (09:46→22:00)
[2022-05-21] MEDS: METOPROLOL TARTRATE 25 MG TAB PO SCH ×2 (09:47→22:01)
[2022-05-21] MEDS ORDERED: PHYTONADIONE (VIT K)10 MG/ML 1ML VIAL SUBCUT ONE (10:15)
[2022-05-21] MEDS: MORPHINE SULF 30 mg ER tab PO SCH ×2 (11:03→22:01)
[2022-05-21 12:42] VITALS: BP 99/51
[2022-05-21 17:50] VITALS: BP 106/55
[2022-05-21] MEDS ORDERED: PPN PER PHARMACY IV NR ×8 (20:00)
[2022-05-21 22:00] VITALS: BP 134/61
[2022-05-22 05:00] VITALS: BP 120/59
[2022-05-22 05:16] LABS: Red Blood Cells 2.81 10^6/uL (4.5-5.90)
[2022-05-22 05:18] LABS: Hematocrit 24.3 % (41.0-53.0); Hemoglobin 8.3 g/dL (13.5-17.5); Mean Corpuscular Hemoglobin 29.7 pg (28.0-32.0); Mean Corpuscular Hgb Conc. 34.2 g/dL (32.0-36.0); Mean Corpuscular Volume 86.6 fL (80.0-100.0); Red Cell Distribution Width 18.5 % (11.8-14.3); White Blood Cell 22.3 10^3/uL (4.4-10.8)
[2022-05-22 05:20] LABS: Band Neutrophils % (manual) 0; Basophils % (manual) 0 (0.0-2.0); Blast Cells 0; Eosinophils % (manual) 0 (0-7); Lymphocytes % (manual) 0 (10.0-50.0); Metamyelocytes % 0; Promyelocytes % 0; Reactive Lymphocytes 0
[2022-05-22 05:29] LABS: Albumin 1.2 g/dL (3.4-5.0); Calcium 10.3 mg/dL (8.5-10.1); Magnesium 2.3 mg/dL (1.6-2.6); Potassium 3.8 mmol/L (3.5-5.1)
[2022-05-22 05:30] LABS: INR 1.36 (0.9-1.15); Partial Thromboplastin Time 32.8 sec (24.6-33.4)
[2022-05-22 05:32] LABS: BUN/Creatinine Ratio 45.2; Bilirubin, Total 13.2 mg/dL (0.2-1.0); Phosphorus 2.7 mg/dL (2.5-4.90); Total Protein 5.1 g/dL (6.4-8.2)
[2022-05-22] MEDS: ACCU-CHEK COMFORT CURVE STRIP VI SCH ×4 (05:48→23:56)
[2022-05-22] MEDS: InsuLIN REG 1unit/0.01ml Soln (100units/ml) SC SCH ×4 (05:48→23:56)
[2022-05-22] MEDS: MEROPENEM 1GM IVPB 100 ML IV SCH ×3 (05:49→21:54)
[2022-05-22 07:38] LABS: Monocytes % (manual) 2 (0-12); Myelocytes % 1
[2022-05-22 08:00] VITALS: BP 125/69
[2022-05-22] MEDS: Glucerna Carbsteady SHAKE Vanilla 8oz PO SCH ×3 (08:00→18:00)
[2022-05-22] MEDS: MORPHINE SULF 30 mg ER tab PO SCH ×2 (11:31→21:53)
[2022-05-22] MEDS: DOCUSATE SOD 100 MG CAP PO SCH ×2 (11:31→21:54)
[2022-05-22] MEDS: METOPROLOL TARTRATE 25 MG TAB PO SCH ×2 (11:32→21:54)
[2022-05-22 12:00] VITALS: BP 111/66
[2022-05-22] MEDS: SODIUM CHLORIDE 0.9% 1,000 ML IV SCH ×2 (13:36→20:00)
[2022-05-22] MEDS ORDERED: MIDAZOLAM HCL 2MG/2ML 2ml VIAL (1mg/ml) IV ONE (16:00)
[2022-05-22 18:30] VITALS: BP 109/63
[2022-05-22] MEDS ORDERED: PPN PER PHARMACY IV NR ×8 (20:00)
[2022-05-22 22:27] VITALS: BP 135/69
[2022-05-23 05:00] VITALS: BP 127/61
[2022-05-23] MEDS: ACCU-CHEK COMFORT CURVE STRIP VI SCH ×3 (05:46→18:00)
[2022-05-23] MEDS: MEROPENEM 1GM IVPB 100 ML IV SCH ×3 (05:46→21:29)
[2022-05-23] MEDS: InsuLIN REG 1unit/0.01ml Soln (100units/ml) SC SCH ×3 (05:53→18:05)
[2022-05-23 08:00] VITALS: BP 112/60
[2022-05-23] MEDS: Glucerna Carbsteady SHAKE Vanilla 8oz PO SCH ×3 (08:00→18:00)
[2022-05-23] MEDS: DOCUSATE SOD 100 MG CAP PO SCH ×2 (11:05→21:29)
[2022-05-23] MEDS: MORPHINE SULF 30 mg ER tab PO SCH ×2 (11:06→21:40)
[2022-05-23] MEDS: METOPROLOL TARTRATE 25 MG TAB PO SCH (11:06)
[2022-05-23] MEDS: APIXABAN 5 MG TAB PO SCH ×2 (11:07→21:29)
[2022-05-23] MEDS: SODIUM CHLORIDE 0.9% 1,000 ML IV SCH (12:40)
[2022-05-23 17:37] VITALS: BP 129/59
[2022-05-23 22:00] VITALS: BP 112/56
[2022-05-24 05:00] VITALS: BP 136/70
[2022-05-24] MEDS: MEROPENEM 1GM IVPB 100 ML IV SCH ×2 (05:55→20:00)
[2022-05-24] MEDS: ACCU-CHEK COMFORT CURVE STRIP VI SCH ×4 (06:10→18:00)
[2022-05-24] MEDS: InsuLIN REG 1unit/0.01ml Soln (100units/ml) SC SCH ×4 (06:39→18:00)
[2022-05-24] MEDS: Glucerna Carbsteady SHAKE Vanilla 8oz PO SCH ×3 (08:00→18:00)
[2022-05-24] MEDS: MORPHINE SULF 30 mg ER tab PO SCH ×2 (09:57→21:49)
[2022-05-24] MEDS: DOCUSATE SOD 100 MG CAP PO SCH ×2 (09:57→21:49)
[2022-05-24] MEDS: APIXABAN 5 MG TAB PO SCH ×2 (09:57→21:49)
[2022-05-24 22:00] VITALS: BP 112/66
[2022-05-25] MEDS: MEROPENEM 1GM IVPB 100 ML IV SCH ×2 (04:00→12:00)
[2022-05-25 05:00] VITALS: BP 114/55
[2022-05-25] MEDS: InsuLIN REG 1unit/0.01ml Soln (100units/ml) SC SCH ×3 (06:00→12:00)
[2022-05-25] MEDS: ACCU-CHEK COMFORT CURVE STRIP VI SCH ×3 (06:23→14:11)
[2022-05-25] MEDS: Glucerna Carbsteady SHAKE Vanilla 8oz PO SCH ×2 (08:00→12:00)
[2022-05-25 09:00] VITALS: BP 118/60
[2022-05-25] MEDS: DOCUSATE SOD 100 MG CAP PO SCH (10:21)
[2022-05-25] MEDS: MORPHINE SULF 30 mg ER tab PO SCH (10:21)
[2022-05-25] MEDS: APIXABAN 5 MG TAB PO SCH (10:21)
[2022-05-25 13:00] VITALS: BP 122/61
== END 2022-05-25 15:10 | disposition hospice, home (50) | DRG 987 ==
LOC: ER 09:20 → OVERFLOW 16:59 → EAST 05-04 17:22 → TELE-EAST 05-14 11:47
PROVIDERS: ADMIT Internal Medicine; ATTEND Nurse Practitioner Acute Care
PROC: 06CM3ZZ Extirpation of Matter from Right Femoral Vein, Percutaneous Approach (ICD-10-PCS; principal; 2022-05-07)
PROC: 0FB03ZX Excision of Liver, Percutaneous Approach, Diagnostic (ICD-10-PCS; 2022-05-11)
DX: I26.99 Other pulmonary embolism without acute cor pulmonale (principal); A41.9 Sepsis, unspecified organism; J96.01 Acute respiratory failure with hypoxia; C78.7 Secondary malignant neoplasm of liver and intrahepatic bile duct; I82.401 Acute embolism and thrombosis of unspecified deep veins of right lower extremity; B15.9 Hepatitis A without hepatic coma; C25.9 Malignant neoplasm of pancreas, unspecified; K80.21 Calculus of gallbladder without cholecystitis with obstruction; D64.9 Anemia, unspecified; D72.829 Elevated white blood cell count, unspecified; Z20.822 Contact with and (suspected) exposure to COVID-19; E11.9 Type 2 diabetes mellitus without complications; E78.00 Pure hypercholesterolemia, unspecified; E88.09 Other disorders of plasma-protein metabolism, not elsewhere classified; F10.10 Alcohol abuse, uncomplicated; F43.10 Post-traumatic stress disorder, unspecified; I10 Essential (primary) hypertension; K80.20 Calculus of gallbladder without cholecystitis without obstruction; Z96.653 Presence of artificial knee joint, bilateral
CPT/HCPCS: 10005; 36415; 36600; 37212; 70250; 70450; 71045; 71275; 74150; 74177; 74183; 76705; 76942; 77012; 80048; 80053; 81001; 82105; 82140; 82248; 82378; 82805; 82962; 83690; 83735; 83970; 84100; 84478; 84484; 85007; 85025; 85027; 85379; 85610; 85730; 86301; 86704; 86706; 86708; 86803; 86850; 86900; 86901; 87040; 87340; 93005; 93306; 93971; 96361; 96365; 96375; 97163; 99152; 99153; 99291; G0378; J1815; J1956; J2001; J2185; J2250; J2405; J3430; J3490; J7060; Q9967